=== PATIENT | male | born 1985 | race Caucasian/White ===

== ENCOUNTER 2025-09-19 11:36 | Emergency (ER) | payer MEDICAID ==
[~2025-09-19] VITALS: Ht 180.3 cm; Wt 105.0 kg
[2025-09-19 11:40] VITALS: O2SAT 97
[2025-09-19 12:34] LABS: BASOPHILS % 0.2 % (0.0-2.0); EOSINOPHILS % 0.5 % (0.0-5.0); HEMATOCRIT. 43.8 % (42.0-52.0); HEMOGLOBIN. 14.5 g/dL (14.0-18.0); LYMPHOCYTES % 35.9 % (20.0-50.0); MEAN PLATELET VOLUME 7.4 fl (7.4-10.4); MONOCYTES % 8.1 % (2.0-8.0); NEUTROPHILS % 55.3 % (40.0-76.0); PLATELET 221 x1000/uL (130-400); RED BLOOD CELL COUNT 5.34 mill/uL (4.7-6.1); RED CELL DISTRIBUTION WIDTH 14.1 % (11.6-14.6)
[2025-09-19 12:43] LABS: CREATININE 1.0 mg/dL (0.6-1.3)
[2025-09-19 12:44] LABS: ETHANOL BLOOD 122 mg/dL (<10); UREA NITROGEN BLOOD 8 mg/dL (9-23)
[2025-09-19 14:59] LABS: CLARITY URINE CLEAR (CLEAR); COLOR URINE YELLOW (YELLOW); GLUCOSE URINE NEGATIVE (NEGATIVE); KETONES URINE NEGATIVE (NEGATIVE); LEUKOCYTE ESTERASE URINE NEGATIVE (NEGATIVE); NITRITE URINE NEGATIVE (NEGATIVE); OCCULT BLOOD URINE NEGATIVE (NEGATIVE); PH URINE 5.5 (4.5-8.0); PROTEIN URINE NEGATIVE (NEGATIVE); SPECIFIC GRAVITY URINE 1.012 (1.005-1.030); UROBILINOGEN URINE 1.0 E.U./dL (0.2-1.0)
[2025-09-19 15:20] LABS: *AMPHETAMINES SCREEN URINE NEGATIVE (NEGATIVE); *BARBITURATES SCREEN URINE NEGATIVE (NEGATIVE); *BENZODIAZEPINES SCREEN URINE NEGATIVE (NEGATIVE); *COCAINE SCREEN URINE NEGATIVE (NEGATIVE); CANNABINOID URINE SCREEN PRESUMPTIVE POSITIVE (NEGATIVE); ECSTASY MDMA SCREEN URINE NEGATIVE (NEGATIVE); METHADONE URINE SCREEN NEGATIVE (NEGATIVE); OPIATES URINE SCREEN NEGATIVE (NEGATIVE); PHENCYCLIDINE URINE SCREEN NEGATIVE (NEGATIVE)
[2025-09-20] MEDS: POTASSIUM CHLORIDE 20MEQ/PACKET PO ONE (23:07)
[2025-09-21] MEDS ORDERED: HYDROXYZINE 25MG TABLET PO PRN (09:15)
[2025-09-21 14:00] VITALS: BP 120/69; PULSE 61; RESP 16; TEMP 36.8; O2SAT 99
[2025-09-21 15:46] VITALS: TEMP 100.6
[2025-09-21] MEDS: ACETAMINOPHEN 325MG TABLET PO ONE (15:46)
[2025-09-22] MEDS ORDERED: OLANZAPINE 5MG TABLET PO SCH (21:00)
== END 2025-09-21 15:59 ==
LOC: ER 11:36
DX: R45.851 Suicidal ideations (principal); F10.129 Alcohol abuse with intoxication, unspecified; F31.9 Bipolar disorder, unspecified; F20.9 Schizophrenia, unspecified; Z59.00 Homelessness unspecified; Z20.822 Contact with and (suspected) exposure to COVID-19; Z79.899 Other long term (current) drug therapy; Y90.9 Presence of alcohol in blood, level not specified
CPT/HCPCS: 36415; 80048; 80305; 80307; 80320; 80329; 81003; 85025; 87426; 99285; G0480

== ENCOUNTER 2025-10-03 05:11 | Emergency (ER) | payer MEDICAID | END 2025-10-03 05:19 | disposition left against medical advice (07) | LOC: ER 05:11 | DX: Z00.8 Encounter for other general examination (principal); Z53.21 Procedure and treatment not carried out due to patient leaving prior to being seen by health care provider ==